=== PATIENT | female | born 1945 | race Two or more races ===

== ENCOUNTER → 2023-12-26 | Emergency (ER) | payer MEDICARE, OTHER ==
[~2023-12-26] VITALS: Ht 152.4 cm; Wt 61.2 kg
[~2023-12-26] MED LIST: METOCLOPRAMIDE HCL 10 MG/2 ML VIAL ONE; ONDA4TAB11 PO; ONDANSETRON 4 MG TAB.RAPDIS ONE
[2023-12-26] MEDS: ONDANSETRON 4 MG TAB.RAPDIS SL ONE (07:57)
[2023-12-26] MEDS: IV NS 0.9% 1,000 ML BAG IV ONE (09:22)
[2023-12-26] MEDS: METOCLOPRAMIDE HCL 10 MG/2 ML VIAL IV ONE (09:23)
[2023-12-26 09:38] LABS: BASOPHILS % (AUTO) 0.4 % (0.0-2.0); EOSINOPHILS % (AUTO) 0.1 % (0.0-6.0); HEMATOCRIT 45 % (33-45); HEMOGLOBIN 15.2 g/dL (11.5-14.8); LYMPHOCYTES # (AUTO) 0.5 K/uL (0.8-4.8); LYMPHOCYTES % (AUTO) 4.9 % (20.0-44.0); MEAN CORPUSCULAR HEMOGLOBIN 32 PG (26.0-33.0); MEAN CORPUSCULAR HGB CONC 34 g/dl (31.0-36.0); MEAN CORPUSCULAR VOLUME 95 fL (82-100); MONOCYTES # (AUTO) 0.3 K/uL (0.1-1.30); MONOCYTES % (AUTO) 2.7 % (2.0-12.0); NEUTROPHILS # (AUTO) 8.9 K/uL (1.8-8.9); NEUTROPHILS % (AUTO) 91.9 % (43.0-81.0); PLATELET COUNT (AUTO) 149 K/uL (150-450); RED BLOOD CELL COUNT(AUTO) 4.75 MIL/uL (4.0-5.2); RED CELL DISTRIBUTION WIDTH 13.4 % (11.5-15.0); WHITE BLOOD COUNT (AUTO) 9.7 K/uL (4.3-11.0)
[2023-12-26 09:59] LABS: CALCIUM, SERUM 8.5 mg/dL (8.5-10.1); CARBON DIOXIDE 20 mmol/L (21-32); CHLORIDE 103 mmol/L (98-107); CREATININE 0.6 mg/dL (0.6-1.3); GLUCOSE 117 mg/dL (74-106); POTASSIUM 3.8 mmol/L (3.5-5.1); SODIUM SERUM 136 mmol/L (136-145); UREA NITROGEN, BLOOD 14 mg/dL (7-18)
[2023-12-26 10:05] LABS: ALANINE AMINOTRANSFERASE 24 U/L (12-78); ALBUMIN 3.5 g/dL (3.4-5.0); ALKALINE PHOSPHATASE 79 U/L (46-116); ASPARTATE AMINOTRANSFERASE 17 U/L (15-37); LIPASE 18 U/L (16-77); TOTAL PROTEIN, SERUM 7.4 g/dL (6.4-8.2)
[2023-12-26 12:06] VITALS: BP 118/85; TEMP 98.1; O2SAT 99
== END | disposition home or self-care (01) ==
LOC: ER 07:32
DX: K52.29 Other allergic and dietetic gastroenteritis and colitis (principal); R11.2 Nausea with vomiting, unspecified
CPT/HCPCS: 99283; 96374; 96361; 85025; 83690; 36415; 80053; J2765; J7030; Q0162

== ENCOUNTER 2025-07-20 09:44 | Emergency (ER) | payer OTHER, MEDICAID ==
[~2025-07-20] VITALS: Ht 152.4 cm; Wt 60.8 kg
[~2025-07-20 09:44] MED LIST changes: -METOCLOPRAMIDE HCL 10 MG/2 ML VIAL ONE; -ONDANSETRON 4 MG TAB.RAPDIS ONE
[2025-07-20] MEDS ORDERED: BENZ-13 PO (12:21)
[2025-07-20] MEDS ORDERED: ACET-2605 PO (12:21)
[2025-07-20 13:17] VITALS: BP 120/80; O2SAT 98
== END 2025-07-20 12:31 | disposition home or self-care (01) ==
LOC: ER 09:51
DX: U07.1 COVID-19 (principal); R05.9 Cough, unspecified; R09.81 Nasal congestion; R51.9 Headache, unspecified; R53.83 Other fatigue; R07.9 Chest pain, unspecified; Z88.6 Allergy status to analgesic agent; Z88.8 Allergy status to other drugs, medicaments and biological substances
CPT/HCPCS: 71045-TC